=== PATIENT | female | born 1960 | race African-American/Black ===

== ENCOUNTER 2016-07-29 08:40 | Outpatient (CLI) | payer MEDICARE, OTHER ==
[2013-02-22 22:12] VITALS: BP 133/75
[2016-07-29 09:09] LABS: BASOPHILS % 0.3 (0.0-1.5); LYMPHOCYTES # 2.4 # k/uL (0.6-4.0); MEAN CORPUSCULAR HEMOGLOBIN 30.5 pg (28.0-34.0); MONOCYTES # 0.2 # k/uL (0.0-0.9); MONOCYTES % 4.7 % (0.0-11.0); NEUTROPHILS # 1.8 # k/uL (1.4-7.7)
[2016-07-29 10:02] LABS: eGFR (African) > 60; eGFR (Non-African) > 60
== END 2016-07-29 08:42 ==
LOC: LAB 08:40
PROVIDERS: ATTEND Nurse Practitioner Psychiatric/Mental Health
DX: Z51.81 Encounter for therapeutic drug level monitoring (principal); Z79.899 Other long term (current) drug therapy; Z13.1 Encounter for screening for diabetes mellitus; Z13.220 Encounter for screening for lipoid disorders
CPT/HCPCS: 36415; 80053; 80061; 80164; 82607; 82746; 83036; 85025

== ENCOUNTER 2017-01-27 08:29 | Outpatient (CLI) | payer MEDICARE, OTHER ==
[2013-02-22 22:12] VITALS: BP 133/75
[2017-01-27 09:33] LABS: BASOPHILS % 0.5 (0.0-1.5); EOSINOPHILS % 2.3 % (0.0-6.8); MEAN CORPUSCULAR HEMOGLOBIN 29.3 pg (28.0-34.0); MEAN CORPUSCULAR VOLUME 92.8 fl (80.0-100.0); MONOCYTES % 6.4 % (0.0-11.0); NEUTROPHILS # 2.6 # k/uL (1.4-7.7)
[2017-01-27 09:42] LABS: eGFR (African) > 60; eGFR (Non-African) > 60
== END 2017-01-27 08:39 ==
LOC: LAB 08:29
PROVIDERS: ATTEND Nurse Practitioner Psychiatric/Mental Health
DX: Z51.81 Encounter for therapeutic drug level monitoring (principal)
CPT/HCPCS: 36415; 80053; 80061; 80164; 83036; 84439; 84443; 85025

== ENCOUNTER 2017-06-30 10:15 | Outpatient (CLI) | payer MEDICARE, OTHER ==
[2013-02-22 22:12] VITALS: BP 133/75
[2017-06-30 12:00] LABS: BASOPHILS % 0.6 (0.0-1.5); EOSINOPHILS % 1.6 % (0.0-6.8); MEAN CORPUSCULAR HEMOGLOBIN 29.2 pg (28.0-34.0); MEAN CORPUSCULAR VOLUME 95.6 fl (80.0-100.0); MONOCYTES % 4.3 % (0.0-11.0); NEUTROPHILS # 1.6 # k/uL (1.4-7.7)
== END 2017-06-30 10:16 ==
LOC: LAB 10:15
PROVIDERS: ATTEND Nurse Practitioner Psychiatric/Mental Health
DX: Z79.899 Other long term (current) drug therapy (principal)
CPT/HCPCS: 36415; 80061; 80164; 83036; 84439; 84443; 85025

== ENCOUNTER 2017-07-28 08:27 | Outpatient (CLI) | payer MEDICARE, OTHER ==
[2013-02-22 22:12] VITALS: BP 133/75
[2017-07-28 09:59] LABS: BASOPHILS % 0.5 (0.0-1.5); EOSINOPHILS % 1.7 % (0.0-6.8); MEAN CORPUSCULAR HEMOGLOBIN 29.1 pg (28.0-34.0); MEAN CORPUSCULAR VOLUME 95.3 fl (80.0-100.0); MONOCYTES % 4.2 % (0.0-11.0); NEUTROPHILS # 2.3 # k/uL (1.4-7.7)
[2017-07-28 10:58] LABS: eGFR (African) > 60; eGFR (Non-African) > 60
== END 2017-07-28 08:30 ==
LOC: LAB 08:27
PROVIDERS: ATTEND Nurse Practitioner Psychiatric/Mental Health
DX: Z79.899 Other long term (current) drug therapy (principal)
CPT/HCPCS: 36415; 80053; 80061; 80164; 83036; 84439; 84443; 85025

== ENCOUNTER 2017-09-06 14:39 | Outpatient (CLI) | payer MEDICARE, OTHER ==
[2013-02-22 22:12] VITALS: BP 133/75
== END 2017-09-06 14:40 ==
LOC: LAB 14:39
PROVIDERS: ATTEND Family Medicine
DX: Z51.81 Encounter for therapeutic drug level monitoring (principal)
CPT/HCPCS: 36415; 80164

== ENCOUNTER 2017-12-12 17:47 | Emergency (ER) | payer MEDICARE, OTHER ==
--- NOTE | 2017-12-12 18:00 | ED Physician Documentation ---
Chest Pain - HISTORIAN Historian: patient - HPI Chief Complaint: Chest Pain Additional Information: Patient has a 10-14 day history of right chest tonja that has been contstant and is graudally getting worse. No precipitating factors noted. Worse with movement and deep breathing. Patient is not had any previous chest pain similar to this. Patient denied any history of coronary artery disease. Onset: days ago Last known Well Date: 11/28/17 Last Known Well Time: 00:00 Last known Well Code/Unknown Code: Unknown (about 10-14 days ago) Context: other (no known precipitating cause) Quality: aching Chest Pain Radiation: no radiation Chest Pain Signs/Symptoms: denies: nausea, vomiting, diaphoresis Worsened By: deep breaths, movement - ROS CONST: none. denies: fever, chills SKIN/ENDO: none NEURO/PSYCH: denies: headache - PAST HX SD risk factors: other (family history with mother) Lung disease: none Surgeries/Procedures: other (left oopherectomy, cyst removed from neck area, breat reduction. ) Immunizations: referred to PCP - SOCIAL HX Smoking History: non-smoker Alcohol Use: none (use to drink) Drug Use: none - FAMILY HX Family HX: CAD over 55 - VITAL SIGNS Vital Signs: Vital Signs Temp Pulse Resp BP Pulse Ox 133/75 02/22/13 22:10 - REVIEWED ASSESSMENTS Nursing Assessment Reviewed: Yes Vitals Reviewed: Yes <Driss Pena - Last Filed: 12/12/17 18:46> - VITAL SIGNS Vital Signs: Vital Signs Temp Pulse Resp BP Pulse Ox 97.2 F L 62 16 151/88 96 12/12/17 17:50 12/12/17 18:56 12/12/17 17:50 12/12/17 17:50 12/12/17 18:56 <Aviva Ram - Last Filed: 12/12/17 22:12> - PAST HX Allergies/Adverse Reactions: Allergies Allergy/AdvReac Type Severity Reaction Status Date / Time aspirin Allergy Verified 12/12/17 18:13 ibuprofen Allergy Verified 12/12/17 18:13 Home Medications: Ambulatory Orders Medication Instructions Recorded Fluticasone Propionate [Flovent 1 puff INH BID 02/22/13 Hfa] Lisinopril [Prinivil] 20 mg PO QD 02/22/13 Lovastatin [Mevacor] 40 mg PO HS 02/22/13 Trazodone HCl [Desyrel] 50 mg PO HS 02/22/13 Duloxetine HCl [Cymbalta] 60 mg PO DAILY 09/02/13 Furosemide [Lasix] 40 mg PO DAILY u2 09/02/13 Albuterol Sulfate [Proair HFA] 2 puff INH Q4H PRN 12/12/17 Ergocalciferol (Vitamin D2) 1 cap PO WEEK 12/12/17 [Vitamin D-2] Fluticasone Propionate [Flonase 2 spray NS DAILY 12/12/17 Nasal [place]] Gabapentin [Neurontin] 1 cap PO BID 12/12/17 Tramadol HCl [Ultram] 1 tab PO Q6H PRN 12/12/17 Progress - Progress Progress: 5: results discussed and plan. Pt and staff aware DG <Aviva Ram - Last Filed: 12/12/17 22:12> ED Results Lab/Radiology - Radiology Radiology Impressions: PA and lateral chest History: Right-sided chest pain PA and lateral chest dated December 12, 2017 demonstrates a normal cardiomediastinal silhouette. Pulmonary vascularity is normal. Lungs are clear. Impression: No active disease. Electronically signed on Dec 12, 2017 6:49:23 PM CDT by: Karlie Ozuna - Orders Orders: ED Orders Category Date Time Status Continuous EKG monitoring Q30M Care 12/12/17 18:06 Active Continuous Pulse Oximetry Q30M Care 12/12/17 18:[address] IV Lock 1T Care 12/12/17 18:06 Active CHEST 2VIEW [RAD] Routine Exams 12/12/17 Taken CBC/PLATELET/DIFF Stat Lab 12/12/17 18:50 Received CMP Stat Lab 12/12/17 18:50 Received CREATINE KINASE Stat Lab 12/12/17 18:50 Received D DIMER Routine Lab 12/12/17 18:50 Received TROPONIN I (cTnI) Stat Lab 12/12/17 18:50 Received Acetaminophen [Ofirmev] Med 12/12/17 18:45 Discontinued 1,000 mg IV NOW ONE Oxygen Daily Oxygen 12/12/17 18:15 Ordered EKG WITH COMPARISON Stat Ther 12/12/17 18:06 Ordered <Aviva Ram - Last Filed: 12/12/17 22:12> Chest Pain Physical Exam - EXAM General Appearance: alert, moderate distress EENT: ENT inspection normal, pharynx normal, no signs of dehydration Neck: nml inspection, no carotid bruit, other (mild tenderness to palpation over the right trapizius.) Respiratory: no resp. distress, chest non-tender, nml breath sounds, resp.distress CVS: reg. rate & rhythm, no murmur, no gallop, no friction rub, pulses full Abdomen: soft, no organomegaly, normal bowel sounds, no abdominal bruit, no distension, non-tender Skin: warm/dry, normal color Extremities: non-tender Neuro: oriented X3, CN's nml as tested, mood/affect nml, cognition normal <Driss Pena - Last Filed: 12/12/17 18:46> - EXAM General Appearance: no acute distress, other (sleeping during exam ) EENT: no signs of dehydration Neck: nml inspection Respiratory: no resp. distress, other (chest tender to palpation on right lateral side ) CVS: reg. rate & rhythm, no murmur Abdomen: soft, normal bowel sounds, no distension, non-tender Skin: warm/dry, normal color Extremities: non-tender Neuro: oriented X3 <Aviva Ram - Last Filed: 12/12/17 22:12> Discharge <Driss Pena - Last Filed: 12/12/17 18:46> Comments: 1. Tylenol as directed for pain 2. Flexeril 10 mg Take 1 by mouth every 12 hours as needed for pain 3. Ice/heat to area 4. Return to PCP in 2-4 days for continued pain 5. Return to ER for concerns Decision to Admit: NO Date of Decison to Admit: 12/12/17 Decision Time: 19:37 <Aviva Ram - Last Filed: 12/12/17 22:12> Clincal Impression: Chest wall pain Referrals: Amanda Alicea MD [Primary Care Provider] - 2 Days Condition: Stable Disposition: 01 HOME, SELF-CARE
[2017-12-12] MEDS ORDERED: ACETAMINOPHEN 1,000 MG/100 ML INJ IV ONE (18:45)
[2017-12-12 19:06] LABS: BASOPHILS % 0.1 (0.0-1.5); MEAN CORPUSCULAR HEMOGLOBIN 28.9 pg (28.0-34.0); MEAN CORPUSCULAR VOLUME 94.9 fl (80.0-100.0); MONOCYTES % 6.4 % (0.0-11.0); NEUTROPHILS # 2.1 # k/uL (1.4-7.7)
[2017-12-12 19:19] LABS: eGFR (African) > 60; eGFR (Non-African) > 60
[2017-12-12] MEDS ORDERED: CYCLOBENZAPRINE HCL 5 MG TABLET PO ONE (19:39)
[2017-12-12 20:01] VITALS: BP 174/81
--- NOTE | 2017-12-13 06:42 | Diagnostic Imaging Report ---
KEVIN IBRAHIM [facility] [id number] [facility] [address] [id number] Report Submission Date: Dec 12, 2017 6:49:23 PM CDT Patient Study Name: RJ CUELLO Date: Dec 12, 2017 6:12:40 PM CDT Modality Type: DX Gender: F Description: CHEST : 62 Institution: [facility] Physician: KEVIN IBRAHIM PA and lateral chest History: Right-sided chest pain PA and lateral chest dated December 12, 2017 demonstrates a normal cardiomediastinal silhouette. Pulmonary vascularity is normal. Lungs are clear. Impression: No active disease. Electronically signed on Dec 12, 2017 6:49:23 PM CDT by: Karlie ROSEN
== END 2017-12-12 19:55 | disposition home or self-care (01) ==
LOC: ED 17:47
DX: R07.9 Chest pain, unspecified (principal)
CPT/HCPCS: 71046; 80053; 82550; 84484; 85025; 85379; 96365; 99284; 99285; S1016

== ENCOUNTER 2018-01-30 09:07 | Outpatient (CLI) | payer MEDICARE, OTHER ==
[2018-01-30 09:53] LABS: BASOPHILS % 0.3 (0.0-1.5); EOSINOPHILS % 2.2 % (0.0-6.8); MEAN CORPUSCULAR HEMOGLOBIN 28.4 pg (28.0-34.0); MONOCYTES % 5.3 % (0.0-11.0); NEUTROPHILS # 2.3 # k/uL (1.4-7.7)
[2018-01-30 10:18] LABS: eGFR (African) > 60; eGFR (Non-African) > 60
== END 2018-01-30 13:55 ==
LOC: LAB 09:07
PROVIDERS: ATTEND Psychiatry & Neurology Psychiatry
DX: Z51.81 Encounter for therapeutic drug level monitoring (principal); Z79.899 Other long term (current) drug therapy
CPT/HCPCS: 36415; 80053; 80061; 80164; 83036; 84439; 85025